=== PATIENT | male | born 1990 | race Caucasian/White ===

== ENCOUNTER 2018-12-08 21:25 | Outpatient (REF) | payer SELFPAY ==
[2018-12-08 21:55] LABS: Hemoglobin A1C 5.1 % (4.5-6.2)
[2018-12-08 22:09] LABS: ALT 57 U/L (16-63); AST 174 U/L (15-37); Albumin 4.7 g/dL (3.4-5.0); Alkaline Phosphatase 98 U/L (46-116); Anion Gap 11.6 mmol/L (3-11); BUN 11 mg/dL (7-18); Bilirubin, Total 0.8 mg/dL (0.2-1.0); CO2 26.4 mmol/L (21.0-32.0); CREATININE 1.07 mg/dL (0.70-1.30); Calcium 9.3 mg/dL (8.5-10.1); Calculated LDL 76 mg/dL; Chloride 104 mmol/L (98-107); Cholesterol 144 mg/dL (50-200); Glucose 91 mg/dL (70-100); HDL Cholesterol 53 mg/dL (40-60); Potassium 4.1 mmol/L (3.5-5.1); Sodium 142 mmol/L (136-145); TSH 1.33 uIU/mL (0.36-3.74); Triglyceride 78 mg/dL (30-150)
== END 2018-12-08 21:45 ==
LOC: NCHCN 21:25
PROVIDERS: Visit Provider Nurse Practitioner Family
DX: Z13.29 Encounter for screening for other suspected endocrine disorder (principal); Z13.1 Encounter for screening for diabetes mellitus; E66.9 Obesity, unspecified; Z13.220 Encounter for screening for lipoid disorders
CPT/HCPCS: 80053; 80061; 83036; 84443

== ENCOUNTER 2020-10-22 21:27 | Outpatient (REF) | payer MEDICAID, SELFPAY ==
[2020-10-25 15:50] LABS: Source URINE; T.vaginalis, Misc, RNA Negative (Negative)
== END 2020-10-22 21:28 | disposition home or self-care (01) ==
LOC: NCHCN 21:27
PROVIDERS: PCP Family Medicine; Visit Provider Family Medicine
DX: Z20.2 Contact with and (suspected) exposure to infections with a predominantly sexual mode of transmission (principal)
CPT/HCPCS: 87661

== ENCOUNTER 2022-12-04 03:35 | Emergency (ER) | payer OTHER, SELFPAY ==
[2022-12-04] VITALS (32 sets, daily range): BP systolic 116–136; BP diastolic 64–76; PULSE 65–87; RESP 9–31; TEMP 37–37.1; O2SAT 89–99
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
[2022-12-04] MEDS: Normal Saline 1,000 ML 1000 ML IV (04:08)
[2022-12-04] MEDS: Acetaminophen 325 MG TAB 650 MG PO (04:08)
[2022-12-04 04:19] LABS: Abs Immature Grans 0.03 10^3/uL (0.0-0.06); Absolute Basophil Count 0.03 10^3/uL (0.0-0.2); Absolute Eosinophil Count 0.16 10^3/uL (0.0-0.7); Absolute Lymphocyte Count 1.95 10^3/uL (1.2-3.4); Absolute Monocyte Count 0.56 10^3/uL (0.1-0.8); Absolute Neutrophil Count 3.83 10^3/uL (1.2-6.7); Basophils % 0.5; Eosinophils % 2.4; HCT 36.7 % (40.0-50.0); HGB 12.8 g/dL (13.5-17.5); Immature Grans % 0.5; Lymphocytes % 29.7; MCH 29.6 pg (27.0-33.0); MCHC 34.9 % (32.0-36.0); MCV 85 fL (80-95); MPV 9.3 fL (8.0-11.0); Monocytes % 8.5; Neutrophils % 58.4; Platelet Count 224 10^3/uL (130-400); RBC 4.33 10^6/uL (4.36-5.78); RDW 12.5 % (11.8-14.1); RDW-SD 38.2 fL; WBC 6.56 10^3/uL (4.4-10.8)
[2022-12-04] MEDS: Mylanta Suspension 30 ML CUP PO (04:19)
[2022-12-04 04:38] LABS: ALT 22 U/L (16-63); AST 21 U/L (15-37); Albumin 4.1 g/dL (3.4-5.0); Alkaline Phosphatase 92 U/L (46-116); Anion Gap 7.4 mmol/L (3-11); BUN 14 mg/dL (7-18); Bilirubin, Total 0.4 mg/dL (0.2-1.0); CO2 29.6 mmol/L (21.0-32.0); Calcium 8.9 mg/dL (8.5-10.1); Chloride 104 mmol/L (98-107); Creatine Kinase 162 U/L (39-308); Estimated GFR 101.92 (mL/min/1.73m2); Glucose 133 mg/dL (74-106); Potassium 3.5 mmol/L (3.5-5.1); Sodium 141 mmol/L (136-145); Total Protein 7.3 g/dL (6.4-8.2)
--- NOTE | 2022-12-04 05:13 | DI.CT_ITS ---
Exam(s) CT HEAD CERVICAL SPINE WO EXAM: CT HEAD CERVICAL SPINE WO CLINICAL HISTORY: fall, possible seizure. TECHNIQUE: Imaging Protocol: Axial computed tomography images with coronal and sagittal reformatted images were created and reviewed COMPARISON: No exams were available for comparison FINDINGS: The examination is limited due to patient motion artifact. CT Head: Ventricles and Extra axial spaces: Normal in size and morphology for the patient's age. Hemorrhage: There is an extra-axial hyperdense collection in the anterior right middle cranial fossa measuring 1.8 transverse by 0.7 AP. It is contour suggesting epidural hematoma rather than a subdura l hematoma. Cerebral parenchyma: Normal. Midline shift: None. Brainstem/Cerebellum: Normal. Calvarium: Normal. Visualized Paranasal sinuses/Mastoids: Clear. Soft Tissues: Soft tissue masses are seen in the infra medial aspects of the orbits bilaterally. On the left it measures 2.1 x 0.7 cm. On the right and measures 1.4 x 0.6 cm. These masses appear to b e associated with the extraocular muscles. There is soft tissue swelling overlying the right parieta l bone. CT Cervical Spine: Bones: No acute fracture or subluxation. There is reversal of the normal cervical lordosis which may be due to patient positioning. Chronic appearing deformity is seen in the superior endplate of T1. Soft Tissues: Unremarkable. Lung Apices: Clear. IMPRESSION: 1. 1.8 x 0.7 cm extra-axial hemorrhage in the right middle cranial fossa anteriorly. This likely ref lects an epidural hematoma rather than a subdural hematoma. No skull fractures identified. 2. Soft tissue mass is seen in the retro-orbital spaces bilaterally. These appear to be associated w ith the extraocular muscles. An MRI of the orbits without and with contrast is recommended for [facility] evaluation. 3. Soft tissue swelling over the right parietal bone. 4. No acute fracture or subluxation in the cervical spine. Unexpected findings RADIATION DOSE DELIVERED: 1,543.08mGy.cm Total DLP DATA REPOSITORY: All CT scans at this facility are submitted to the National Radiology Data Registry (NRDR) Dose Index Registry (DIR) with the [employer] (ACR). RADIATION OPTIMIZATION: All CT scans at this facility use at least one of these dose optimization te chniques: automated exposure control; mA and/or kV adjustment per patient size (includes targeted exa ms where dose is matched to clinical indication); or iterative reconstruction.
--- NOTE | 2022-12-04 05:41 | DI.VRAD_ITS ---
Addendum created by Keith Blake MD on 12/04/2022 5:46:25 AM EDT: Findings discussed with Hi Mora MD at time of interpretation. Addendum created by Keith Blake MD on 12/04/2022 5:41:27 AM EDT: There is a 1.9 cm long axis by 0.8 mm maximum thickness acute extra-axial hematoma at the anterior aspect of the inferior right temporal lobe, the contour of which suggest epidural hematoma rather the subdural hematoma; however there is no discernible associated skull fracture. Impression. Initial report created on 12/04/2022 5:38:58 AM EDT: PROCEDURE INFORMATION: Exam: CT Head Without Contrast Exam date and time: 12/04/2022 5:02 AM Age: 32 years old Clinical indication: Injury or trauma; Fall; Concussion/head injury; Consciousness not specified TECHNIQUE: Imaging protocol: Computed tomography of the head without contrast. Radiation optimization: All CT scans at this facility use at least one of these dose optimization techniques: automated exposure control; mA and/or kV adjustment per patient size (includes targeted exams where dose is matched to clinical indication); or iterative reconstruction. COMPARISON: No relevant prior studies available. FINDINGS: Brain: Normal. No hemorrhage or edema. Cerebral ventricles: No ventriculomegaly. Paranasal sinuses: Visualized sinuses are unremarkable. No fluid levels. Mastoid air cells: Unremarkable. Bones/joints: Unremarkable. No acute fracture. Soft tissues: Unremarkable. IMPRESSION: No acute intracranial abnormality. PROCEDURE INFORMATION: Exam: CT Cervical Spine Without Contrast Exam date and time: 12/04/2022 5:02 AM Age: 32 years old Clinical indication: Injury or trauma; Fall; Concussion/head injury; Consciousness not specified TECHNIQUE: Imaging protocol: Computed tomography of the cervical spine without contrast. Radiation optimization: All CT scans at this facility use at least one of these dose optimization techniques: automated exposure control; mA and/or kV adjustment per patient size (includes targeted exams where dose is matched to clinical indication); or iterative reconstruction. COMPARISON: No relevant prior studies available. FINDINGS: Bones/joints: Reversal of the normal cervical lordosis. No fracture. Lungs: Lung apices are normal. Soft tissues: Unremarkable. IMPRESSION: No fracture. Dictated and Authenticated by: Keith Blake MD. Ordering:HELLEN Do MD
[2022-12-04] MEDS: levETIRAcetam 1,000 MG in Normal Saline 100 ML 400 MG IVPB (05:58)
[2022-12-04 06:14] LABS: PTT Activated 22.7 sec (21.5-31.9); Prothrombin Time 10.4 sec (9.3-11.0)
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
--- NOTE | 2022-12-04 08:30 | DI.VRAD_ITS ---
PROCEDURE INFORMATION: Exam: XR Chest Exam date and time: 12/04/2022 7:02 AM Age: 32 years old Clinical indication: Injury or trauma; Fall; Blunt trauma (contusions or hematomas) TECHNIQUE: Imaging protocol: Radiologic exam of the chest. Views: 1 view. COMPARISON: No relevant prior studies for comparison. FINDINGS: Lungs: The lungs are clear and well aerated bilaterally. There is no consolidation, infiltrate, or pulmonary edema. The pulmonary vasculature is normal in caliber. Pleural spaces: Unremarkable. No pleural effusion or pneumothorax. Heart/Mediastinum: Heart size is within normal limits. Cardiomediastinal contours are normal. Bones/joints: No acute osseous abnormality. IMPRESSION: No acute posttraumatic abnormality in the chest. Dictated and Authenticated by: Fanny Quiroz MD. Ordering:HELLEN Do MD
--- NOTE | 2022-12-04 08:31 | DI.VRAD_ITS ---
PROCEDURE INFORMATION: Exam: XR Pelvis Exam date and time: 12/04/2022 7:05 AM Age: 32 years old Clinical indication: Injury or trauma; Fall; Blunt trauma (contusions or hematomas); Does not apply; Other: Pelvis TECHNIQUE: Imaging protocol: Radiologic exam of the pelvis. Views: 1 or 2 view. COMPARISON: No relevant prior studies available. FINDINGS: Bones/joints: No fractures are identified. Both femoral heads maintains spherical contour and project over the acetabular fossae. The pubic symphysis is unremarkable. Sacroiliac joints are symmetric. Soft tissues: Regional soft tissues are unremarkable. IMPRESSION: No fracture identified in the pelvis. Dictated and Authenticated by: Fanny Quiroz MD. Ordering:HELLEN Do MD
== END 2022-12-04 08:17 | disposition short-term general hospital (02) ==
LOC: ER 07:11
PROVIDERS: Emergency Provider Emergency Medicine; PCP Family Medicine
DX: R56.9 Unspecified convulsions; W06.XXXA Fall from bed, initial encounter; Z79.899 Other long term (current) drug therapy; S06.4X1A Epidural hemorrhage with loss of consciousness of 30 minutes or less, initial encounter; R40.2410 Glasgow coma scale score 13-15, unspecified time
CPT/HCPCS: 80053; 82550; 96361; 96365; 99285; 70450; 71045; 72125; 72170; 85025; 85610; 85730; J1953

== ENCOUNTER 2022-12-14 22:52 | Emergency (ER) | payer OTHER, SELFPAY ==
[2022-12-14 22:52] VITALS: BP 113/74; PULSE 71; RESP 18; TEMP 37.3; O2SAT 98
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
[2022-12-14] MEDS: Lidocaine/Epinephri/Tetracaine Topical Gel 3 ML TP (23:08)
[2022-12-14] MEDS: Acetaminophen 500 MG TAB 1000 MG PO (23:08)
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
[2022-12-15 00:07] VITALS: BP 121/78; PULSE 63; RESP 16; O2SAT 98
== END 2022-12-15 00:10 ==
PROVIDERS: Emergency Provider Student in an Organized Health Care Education/Training Program; PCP Family Medicine
DX: S01.412A Laceration without foreign body of left cheek and temporomandibular area, initial encounter (principal); W50.0XXA Accidental hit or strike by another person, initial encounter; Y93.82 Activity, spectator at an event; Y92.148 Other place in prison as the place of occurrence of the external cause; Y99.8 Other external cause status
CPT/HCPCS: 12011; 99284; 70450; 70486; 99283

== ENCOUNTER → 2023-03-01 01:33 | Outpatient (CLI) | payer OTHER, SELFPAY ==
--- NOTE | 2023-03-01 | DI.MRI_ITS ---
Exam(s) MR IAC BRAIN WO/W EXAM: MR IAC BRAIN WO/W CLINICAL HISTORY: SENSORINEURAL HEARING LOSS ISIDORO, H90.3, IMPACTED CERUMEN. TECHNIQUE: Multiplanar multisequence MRI of the brain and internal auditory canals was performed. CONTRAST MATERIAL: IV Contrast: 20 mL of Magnevist contrast administered. COMPARISON: CT CT HEAD WO CONTRAST (GENERIC) from 12/04/[address] HEAD FACIAL WO from 12/14/2022 FINDINGS: VENTRICLES AND EXTRA AXIAL SPACES: Normal in size and morphology for the patient's age. HEMORRHAGE: None. CEREBRAL PARENCHYMA: No focus of restricted diffusion to suggest acute infarct. No space-occupying le kraig identified. MIDLINE SHIFT: None. BRAINSTEM/CEREBELLUM: Normal. CALVARIUM: Normal. ENHANCEMENT: No suspicious enhancement identified. VISUALIZED PARANASAL SINUSES/MASTOIDS: Clear. ORBITS: Unremarkable. IAC/CP ANGLE: The internal auditory canals are within normal limits. The cerebellar pontine angles ar e unremarkable. No enhancing lesions are seen. Visualized portions of the cranial nerves appear withi n normal limits. OTHER FINDINGS: None. IMPRESSION: Unremarkable MRI of the brain and internal auditory canals. DATA REPOSITORY:
[2023-03-01] MEDS: Normal Saline Flush 10 ML SYR IVP (08:55)
[2023-03-01] MEDS: Gadoterate meglumine 20 ML SYRINGE IVP (08:55)
== END ==
PROVIDERS: PCP Family Medicine; Visit Provider Nurse Practitioner Adult Health
DX: H61.23 Impacted cerumen, bilateral (principal); H90.3 Sensorineural hearing loss, bilateral
CPT/HCPCS: 70553